=== PATIENT | female | born 1965 | race Caucasian/White ===

== ENCOUNTER 2018-05-23 08:00 | Outpatient (CLI) | payer BC ==
[2010-04-14 22:01] VITALS: BMI 23.7
== END 2018-05-23 09:00 | disposition home or self-care (01) ==
LOC: D.MAMMO 08:00
DX: Z12.31 Encounter for screening mammogram for malignant neoplasm of breast (principal)

== ENCOUNTER 2020-12-03 13:00 | Outpatient (CLI) | payer BC ==
[2010-04-14 22:01] VITALS: BMI 23.7
== END 2020-12-03 14:00 | disposition home or self-care (01) ==
LOC: D.MAMMO 13:00
PROVIDERS: ATTEND Obstetrics & Gynecology
DX: Z12.31 Encounter for screening mammogram for malignant neoplasm of breast (principal)